=== PATIENT | female | born 1980 | race Caucasian/White ===

== ENCOUNTER → 2018-05-21 16:01 | Outpatient (CLI) | payer OTHER, SELFPAY ==
[2018-05-26 12:13] LABS: HPV Reflexed? NOT INDICATED
== END ==
PROVIDERS: Referring Provider Obstetrics & Gynecology; Visit Provider Obstetrics & Gynecology
DX: Z12.4 Encounter for screening for malignant neoplasm of cervix (principal)
CPT/HCPCS: 87624; 88175; G0145

== ENCOUNTER → 2019-06-14 | Outpatient (CLI) | payer OTHER, SELFPAY ==
[2019-06-14 15:03] VITALS: BMI 24.9
[2019-06-15 09:13] LABS: Amphetamine Urine VISTA NEGATIVE (<1000 ng/mL); Barbiturate Urine VISTA NEGATIVE (< 200 ng/mL); Benzodiazepine Urine VISTA NEGATIVE (< 200 ng/mL); Cocaine Urine VISTA NEGATIVE (< 300 ng/mL); Ecstacy Urine VISTA NEGATIVE (< 500 ng/mL); Methadone Urine VISTA NEGATIVE (< 300 ng/mL); PCP Urine VISTA NEGATIVE (< 25 ng/mL); THC Urine VISTA NEGATIVE (< 50 ng/mL); Vista UDS pH Range 6
[2019-06-15 11:58] LABS: Chlamydia Trachomatis by PCR Negative (Negative); Neisserai gonorrhoeae by PCR Negative (Negative); Probe Check PASS; Sample Adequacy Control PASS; Specimen Processing Control PASS
== END | disposition home or self-care (01) ==
LOC: LABSPEC 06-15 08:32
PROVIDERS: Visit Provider Obstetrics & Gynecology
DX: Z34.90 Encounter for supervision of normal pregnancy, unspecified, unspecified trimester (principal)
CPT/HCPCS: 80307; 87086; 87491; 87591

== ENCOUNTER → 2019-07-12 09:58 | Outpatient (CLI) | payer OTHER, SELFPAY ==
[2019-07-12 09:34] VITALS: BMI 24.9
[2019-07-12 10:25] LABS: Absolute Lymphocyte Count 1.34 X10^3/uL (0.83-4.51); Absolute Neutrophil Count 6.7 X10^3/uL (2.0-7.7); Basophil# 0.04 X10^3/uL; Basophil% 0.5 % (0-1); Eosinophil# 0.14 X10^3/uL; Eosinophils% 1.6 % (0-5); Hematocrit 30.4 % (37-47); Hemoglobin 10.4 g/dL (12.0-15.0); Lymphocyte # 1.34 X10^3/ul (4.0); Lymphocyte % 15.3 % (19-41); Mean Corp Hgb Conc 34.2 g/dL (32-36); Mean Corpuscular Volume 96.5 fL (81-99); Mean Platelet Vol. 9.3 fl (6.2-12.0); Monocyte# 0.53 X10^3/uL; NRBC Flagged by Analyzer 0 % (0-5); Neutrophil # 6.67 X10^3/uL (2.7-7.7); Platelet Count 194 K/mm3 (150-450); RBC Distribution Width CV 12.7 % (11.6-14.6); RBC Distribution Width SD 44.1 fl (35.1-43.9); Red Blood Count 3.15 M/mm3 (4.2-5.4); White Blood Count 8.8 K/mm3 (4.4-11.0)
[2019-07-12 11:22] LABS: HIV - WCH Non-Reactive (Nonreactive); Hepatitis B Surface Antigen Non-Reactive (Nonreactive); Hepatitis C Antibody Non-Reactive (Nonreactive); Rubella IgG 99.5 IU/mL
[2019-07-15 02:20] LABS: Rapid Plasmin Reagin (RPR) NONREACTIVE (NONREACTIVE)
== END ==
PROVIDERS: Referring Provider Obstetrics & Gynecology; Visit Provider Obstetrics & Gynecology
DX: Z34.90 Encounter for supervision of normal pregnancy, unspecified, unspecified trimester (principal)
CPT/HCPCS: 36415; 85025; 86592; 86703; 86762; 86803; 86850; 86900; 86901; 87340

== ENCOUNTER → 2019-08-19 12:21 | Outpatient (CLI) | payer OTHER, SELFPAY ==
[2019-07-12 09:34] VITALS: BMI 24.9
[2019-08-16 11:26] VITALS: BMI 24.9
--- NOTE | 2019-08-19 12:22 | US_ITS ---
STUDY: SECOND AND THIRD TRIMESTER OBSTETRICAL ULTRASOUND REASON FOR EXAM: Female, 39 years old anatomy LMP: 04/02/2019 TECHNIQUE: Transabdominal TECHNICAL QUALITY: Adequate. PRIOR ULTRASOUND: None. FINDINGS: There is a single intrauterine fetus. The fetus is in a breech presentation. There is demonstrated cardiac activity with a heart rate of 155 bpm. There is a normal amniotic fluid volume. The largest amniotic fluid pocket measures 5.3 cm. The placenta is anterior in location and is not low lying. There are Grade 0 placental changes. The cervix measures 3.4 in length. The bilateral adnexal regions are normal. BIOMETRY: BPD: 4.5: 19 weeks, 4 days HC: 17.1: 19 weeks, 4 days AC: 15.0: 20 weeks, 1 days FL: 3.1: 19 weeks, 3 days CI: FL/BPD: FL/HC: FL/AC: HC/AC: age by current US: 19 weeks, 5 days. GAVIN by current US: 01/08/2020. Estimated weight: 317 grams, +/- 47 grams, 53 %. age by prior US: weeks, days. GAVIN by prior US: . Age by LMP: 19 weeks, 5 days. GAVIN by LMP: 01/08/2020. ANATOMY: Gender: Male Cranium: Normal lateral ventricles. Normal choroid plexus. Normal cerebellum. Normal cisterna magna. Normal face, nose and lips. Chest: Normal 4-chamber heart. Abdomen/Pelvis: Normal diaphragm. Normal stomach. Normal abdominal wall. Normal cord insertion. Normal 3 vessel cord. Normal kidneys. Normal bladder. Spine: Normal cervical spine. Normal thoracic spine. Normal lumbar spine. Normal sacrum. Extremities: Normal bilateral upper extremities. Normal bilateral lower extremities. US/OB Anatomy Scan IMPRESSION: Single live fetus in a breech presentation. No demonstrated anatomic abnormality. Placenta is grade 0 and is not low-lying. Cervix is closed. age by current US: 19 weeks, 5 days. GAVIN by current US: 01/08/2020. Estimated weight: 317 grams, +/- 47 grams, 53 %. Electronically Signed: Jason Rae MD at 14:00 EDT , Service support ,
== END ==
PROVIDERS: Referring Provider Obstetrics & Gynecology; Visit Provider Obstetrics & Gynecology
DX: O09.90 Supervision of high risk pregnancy, unspecified, unspecified trimester (principal); Z3A.00 Weeks of gestation of pregnancy not specified
CPT/HCPCS: 76805

== ENCOUNTER → 2019-08-26 14:32 | Outpatient (CLI) | payer OTHER, SELFPAY ==
[2019-08-16 11:26] VITALS: BMI 24.9
[2019-08-26 14:48] LABS: Absolute Lymphocyte Count 1.48 X10^3/uL (0.83-4.51); Basophil# 0.05 X10^3/uL; Basophil% 0.5 % (0-1); Eosinophil# 0.12 X10^3/uL; Eosinophils% 1.2 % (0-5); Hematocrit 32.1 % (37-47); Hemoglobin 10.9 g/dL (12.0-15.0); Lymphocyte # 1.48 X10^3/ul (4.0); Lymphocyte % 14.3 % (19-41); Mean Platelet Vol. 9.1 fl (6.2-12.0); Monocyte# 0.64 X10^3/uL; Monocyte% 6.2 % (0-10); NRBC Flagged by Analyzer 0 % (0-5); Neutrophil # 8.01 X10^3/uL (2.7-7.7); Neutrophil % 77.3 % (47-70); Platelet Count 232 K/mm3 (150-450); RBC Distribution Width SD 47.2 fl (35.1-43.9); Red Blood Count 3.21 M/mm3 (4.2-5.4); White Blood Count 10.4 K/mm3 (4.4-11.0)
== END ==
PROVIDERS: Referring Provider Nurse Practitioner Women's Health; Visit Provider Nurse Practitioner Women's Health
DX: O99.019 Anemia complicating pregnancy, unspecified trimester (principal); D64.9 Anemia, unspecified; Z3A.00 Weeks of gestation of pregnancy not specified
CPT/HCPCS: 36415; 85025

== ENCOUNTER → 2019-12-17 14:23 | Outpatient (CLI) | payer OTHER, SELFPAY ==
[2019-12-03 16:07] VITALS: BMI 27.4
--- NOTE | 2019-12-17 14:23 | US_ITS ---
STUDY: SECOND AND THIRD TRIMESTER OBSTETRICAL ULTRASOUND - LIMITED REASON FOR EXAM: Female, 39 years old. Growth.. LMP: 04/02/2019. PRIOR ULTRASOUND: 08/19/2019. TECHNIQUE: 1 TECHNICAL QUALITY: Adequate. FINDINGS: There is a single intrauterine fetus. The fetus is in a cephalic presentation. There is demonstrated cardiac activity with a heart rate of 153 bpm. There is a normal amniotic fluid volume. The largest amniotic fluid pocket measures 4.26 cm. The amniotic fluid index (JIM) is 10.01 cm. The placenta is anterior in location and is not low lying. There are Grade 1 placental changes. There is a succenturiate anterior placenta. The cervix is obscured. BIOMETRY: BPD: 8.55 cm: 34 weeks, 3 days HC: 32.22 cm: 36 weeks, 2 days AC: 33.74 cm: 37 weeks, 4 days FL: 6.98 cm: 35 weeks, 5 days Age by LMP: 36 weeks, 6 days. GAVIN by LMP: 01/08/2020.. age by prior US: 36 weeks, 6 days. GAVIN by prior US: 01/08/2020.. age by current US: 36 weeks, 1 days. GAVIN by current US: 01/13/2020.. Estimated weight: 3005 grams, +/- 445 grams, 51 percentile. Gender: Indeterminant US/OB Limited With Biometrics IMPRESSION: 1. Live single intrauterine of 36 weeks, 1 day. GAVIN is 01/13/2020. There is adequate interval growth since the prior ultrasound. 2. EFW 3005 g. 3. JIM of 10.01 cm. 4. Anterior grade 1 placenta. There is a succenturiate anterior placenta noted. 5. Vertex presentation. Electronically Signed: Isidro Hoyos DO at 22:39 EDT Tel [phone], Service support ,
== END ==
PROVIDERS: PCP Nurse Practitioner Family; Referring Provider Obstetrics & Gynecology; Visit Provider Obstetrics & Gynecology
DX: O09.93 Supervision of high risk pregnancy, unspecified, third trimester (principal); Z3A.36 36 weeks gestation of pregnancy
CPT/HCPCS: 76816; 87077; 87081; 87186

== ENCOUNTER 2019-12-29 21:40 | Inpatient (IN) | payer OTHER, SELFPAY ==
[2019-12-24 15:48] VITALS: BMI 30.3
[2019-12-29 21:34] VITALS: BP 126/76; PULSE 77; PULSE 80; TEMP 36.8; O2SAT 99
[2019-12-29 22:01] VITALS: BMI 31.0
[2019-12-29] MEDS: Lactated Ringers 1,000 ML 50 ML IV (22:10)
[2019-12-29 22:30] VITALS: BP 135/73; PULSE 76; TEMP 37
[2019-12-29 22:38] LABS: Absolute Neutrophil Count 11.2 X10^3/uL (2.0-7.7); Basophil# 0.06 X10^3/uL; Basophil% 0.4 % (0-1); Eosinophil# 0.13 X10^3/uL; Eosinophils% 0.9 % (0-5); Hematocrit 33.7 % (37-47); Hemoglobin 11.9 g/dL (12.0-15.0); Mean Corp Hgb Conc 35.3 g/dL (32-36); Mean Corpuscular Hgb 34.3 pg (27.0-32.0); Mean Corpuscular Volume 97.1 fL (81-99); Mean Platelet Vol. 10.5 fl (6.2-12.0); Monocyte# 0.83 X10^3/uL; Monocyte% 5.8 % (0-10); NRBC Flagged by Analyzer 0 % (0-5); Neutrophil # 11.19 X10^3/uL (2.7-7.7); Neutrophil % 78.3 % (47-70); Platelet Count 229 K/mm3 (150-450); RBC Distribution Width SD 42.9 fl (35.1-43.9); Red Blood Count 3.47 M/mm3 (4.2-5.4); White Blood Count 14.3 K/mm3 (4.4-11.0)
[2019-12-29 22:51] LABS: Bedside Glucose 101 mg/dL (70-110)
[2019-12-30] VITALS (24 sets, daily range): BP systolic 105–139; BP diastolic 57–80; PULSE 75–225; RESP 16–18; TEMP 36.3–37.2; O2SAT 81–100
[2019-12-30] MEDS: 0.9% Saline Lock 10 ML Syringe IV ×3 (00:20→06:59)
--- NOTE | 2019-12-30 01:21 | HP.PCM_ITS ---
- Problem List (1) Active labor at term Status: Acute (2) Positive GBS test Status: Acute Comment: plan PCN in labor (3) 36 weeks gestation of Status: Acute Comment: covid testing ordered 12/15/19 (scheduled 12/31/2019 4:30) (4) Blood test declined Status: Acute Comment: Missed blood draw for 1h GTT. Initially planned for home glucose monitoring, but patient refuses. Counseled on importance of assessing for gestational diabetes and that elevated BGTs can result in problems with development and excessive growth. (5) Palpitations Status: Acute Comment: cardiology consult/Ramandeep/normal (6) Rh negative status during Status: Acute Qualifiers: Comment: Refused rhogam at 28 weeks. Counseled on risks associated with alloimmunization and rationale for rhogam. Voices understanding of potential risks. Would be agreeable to rhogam at delivery if needed. Patient's Shayan is A+. (7) Advanced maternal age (AMA) in Status: Acute Comment: genetic counseling provided. NL 36 wk growth US (8) Status: Acute Qualifiers: Comment: carrier, genetic, and ntd screening declined. anatomy us normal (9) Supervision of high risk , antepartum Status: Acute Comment: PRR GAVIN 01/08/20 boy secret Shayan History Date of Admission: 12/30/19 Final GAVIN: 01/08/20 Final GAVIN Source: LMP Gestational age: 38 Weeks and 5 Days History of this : This is a 39 year-old, G1, P0, at 38 weeks gestational age admitted in active labor. Denies leakage of fluid, vaginal bleeding, decreased movement. Medical History: Medical History (Last Reviewed 12/24/19 @ 15:49 by Ina Mckoy) Palpitations (Acute) R00.2 cardiology consult/Ramandeep/normal Rh negative status during (Acute) O26.899, Z67.91 Refused rhogam at 28 weeks. Counseled on risks associated with alloimmunization and rationale for rhogam. Voices understanding of potential risks. Would be agreeable to rhogam at delivery if needed. Patient's Shayan is A+. Advanced maternal age (AMA) in (Acute) genetic counseling provided. NL 36 wk growth US (Acute) Z34.90 carrier, genetic, and ntd screening declined. anatomy us normal Supervision of high risk , antepartum (Acute) O09.90 PRR GAVIN 01/08/20 boy secret Shayan Anemia affecting (Resolved) O99.019 start iron; rpt CBC 08/15 Surgical History: Surgical History (Last Reviewed 12/24/19 @ 15:49 by Ina Mckoy) S/P cholecystectomy Z90.49 S/P ear surgery Z98.890 Allergies No Known Allergies Allergy (Verified 12/29/19 22:59) Home Medications: Home Medications digestive enzymes 1 cap PO DAILY 06/14/19 lactobacillus combination no.8 3 billion cell capsule 3,000 mmu cells PO DAILY 06/14/19 vitamin #56-iron 35 mg and 5 mg-folic acid 1 mg-dha capsule 1 cap PO DAILY 06/14/19 ferrous sulfate 250 mg (50 mg iron) tablet,extended release 250 mg PO DAILY 09/08/19 Smoking Status: Never smoker Alcohol: None NST - FHR Rate Baby A Baseline: 150 Variability:: Moderate Accelerations:: 15 x 15 Decelerations:: None NST Reactive:: Yes FHR Category:: Category I Uterine Activity:: q5 min History Past Pregnancies: Pregancy History 1 Elective abortions Hx Para Spontaneous abortions Hx # Term Pregnancies Ectopic pregnancies Hx # Pregnancies Multiple births # of living children Labs: Mom's Microbiology 12/29/19 22:00 Mucosa - Nose - Final Mom's Labs & Results 12/29/19 12/29/19 12/29/19 22:00 22:00 22:29 WBC 14.3 H RBC 3.47 L Hgb 11.9 L Hct 33.7 L MCV 97.1 MCH 34.3 H MCHC 35.3 RDW Std Deviation 42.9 RDW Coeff of Yudith 12.0 Plt Count 229 MPV 10.5 Immature Gran % (Auto) 0.600 Neut % (Auto) 78.3 H Lymph % (Auto) 14.0 L [place] % (Auto) 5.8 Eos % (Auto) 0.9 Baso % (Auto) 0.4 Absolute Neuts (auto) 11.2 H Absolute Lymphs (auto) 2.00 Nucleated RBC % 0 POC Glucose 101 Blood Type O NEGATIVE Antibody Screen NEGATIVE Course Did the patient receive Yes care? Labs Blood Type: O RH: NEGATIVE RPR/VDRL/Syphilis Nonreactive Rubella status Immune HbSAg Negative Date Done: 07/12/19 Chlamydia Negative Gonorrhea Negative HIV/AIDS Non-Reactive Group B Strep: Positive Current Obstetrical History Gestational Diabetes No Incompetent Cervix No Infertility Yes: no treatments IUGR No Macrosomia No Hypertension/Pre-eclampsia No Placenta Previa/Abruption No PTL/PROM No Uterine anomaly No Oligohydramnios No Polyhydramnios No Multiple gestation No Past Medical History Asthma No Diabetes No Hypertension No Heart disease No Mitral valve prolapse No Neurologic/Seizure disorder/ No Migraines Kidney disease No Liver disease No Varicosities No Clotting disorders/Hx of DVT No Thyroid Dysfunction No Other medical diseases No Psychiatric disorders No Major trauma No Abnormal PAP smear No Sleep apnea No Mammogram in the last 2 years No Social History Marital Status: Alleged father Shayan Hx Smoking No Smoking Status Never smoker Expected Delivery Method: Spontaneous Vaginal Describe any other labor & delivery plans:: Pregancy History. 1 Elective abortions. Hx Para Spontaneous abortions. Hx # Term Pregnancies Ectopic pregnancies. Hx # Pregnancies Multiple births. # of living children. OB Visit. GAVIN Calculator. Estimated Delivery DateMethodCurrent WG. Current Iznmalec59/14/20LMP (Certain)37w 6d. Other Oskbtwgaa40/14/20Ultrasound #137w 6d. Expected Delivery Route/Plan. . Labor Preferences-. labor support person: Shayan. pain management options preferred: desires natural with minimal intervention, but open to epidural. Desired hydrotherapy in labor. Hep lock if able. Labor preferences: declines baby meds, desires immediate skin to skin, pitocin and AROM only if medically necessary, pitocin only if needed. cut cord/dad catch: both. : yes. PP control planned: unsure. discussed possible routes of delivery and associated risks: discussed possible delivery modalities and possible indications for each including R/B/A of , VAVD, and CS. questions answered. special requests: no baby meds, immediate skin to skin. Specific Issue/Plans. flu vaccine: declined. tdap vaccine: declined. rhogam: refused in - agreeable if needed PP. LARC form signed: 11/18. Problem list reviewed and updated with the most current plan of care details and appropriate orders placed. Relevant counseling for the gestational age provided. Continue routine care and follow up unless otherwise noted in visit notes/problem list details. Initial Weight: 155 lb. Date. -?-?-?-?-?-?-?-?-?-?-?-?-. EGAWeightBPUrine Prot. -?-?-?-?-?-?-?-?-?-?-?-?-. GlucoseFHRFuHtPresDilation. -?-?-?-?-?-?-?-?-?-?-?-?-. EffacedFetal StVisit Note. 07/12/19. -?-?-?-?-?-?-?-?-?-?-?-?-. 14w 2d158 lb. (+3 lb)114/60Negative. -?-?-?-?-?-?-?-?-?-?-?-?-. Negative 165. -?-?-?-?-?-?-?-?-?-?-?-?-. SM- vb lof crmaping doing well. nob labs today. 08/16/19. -?-?-?-?-?-?-?-?-?-?-?-?-. 19w 2d170 lb. (+15 lb)126/80Negative. -?-?-?-?-?-?-?-?-?-?-?-?-. Negative 162. -?-?-?-?-?-?-?-?-?-?-?-?-. MH-No Vb, LOF. -No Vb, LOF. c/o palpitations mostly in evenings, improved with Fe supp but now recurring. No dizziness. Will recheck CBC and get cardiology consult. Anatomy US later this week. 09/17/19. -?-?-?-?-?-?-?-?-?-?-?-?-. 23w 6d170 lb 6 oz. (+15 lb 6 oz)112/60Negative. -?-?-?-?-?-?-?-?-?-?-?-?-. Negative 22873. -?-?-?-?-?-?-?-?-?-?-?-?-. SM- no vb lof good fm n oregular ctx. 10/15/19. -?-?-?-?-?-?-?-?-?-?-?-?-. 27w 6d174 lb. (+19 lb)106/60Negative. -?-?-?-?-?-? -?-?-?-?-?-?-. Negative 73050. -?-?-?-?-?-?-?-?-?-?-?-?-. GP - no LOF, VB, DFM, ctx. Refused rhogam. Late for blood draw for GTT - plan 7d home glucose monitoring. 11/05/19. -?-?-?-?-?-?-?-?-?-?-?-?-. 30w 6d178 lb. (+23 lb)104/60Negative. -?-?-?-?-?-?-?-?-?-?-?-?-. Negative [id number]. -?-?-?-?-?-?-?-?-?-?-?-?-. SM- no vb lof good fm no regular ctx. 11/19/19. -?-?-?-?-?-?-?-?-?-?-?-?-. 32w 6d180 lb 8 oz. (+25 lb 8 oz)124/76Negative. -?-?-?-?-?-?-?-?-?-?-?-?-. Negative 87017. -?-?-?-?-?-?-?-?-?-?-?-?-. GP - no LOF, VB, DFM, ctx. Did not do home glucose monitoring - refuses. Discussed reason recommended and voices understanding. LARC form signed - declines. 12/03/19. -?-?-?-?-?-?-?-?-?-?-?-?-. 34w 6d185 lb. (+30 lb)114/60Negative. -?-?-?-?-?-?-?-?-?-?-?-?-. Negative 76609. -?-?-?-?-?-?-?-?-?-?-?-?-. SM- no vb lof good fm no regular ctx. ordered growth US. 12/17/19. -?-?-?-?-?-?-?-?-?-?-?-?-. 36w 6d190 lb 4 oz. (+35 lb 4 oz)120/78Negative. -?-?-?-?-?-?-?-?-?-?-?-?-. Negative [id number]. -?-?-?-?-?-?-?-?-?-?-?-?-. GP - no LOF, VB, DFM, ctx. GBS today. Discussed labor preferences. Declines SVE. 12/24/19. -?-?-?-?-?-?-?-?-?-?-?-?-. 37w 6d188 lb. (+33 lb)126/82Negative. -?-?-?-?-?-?-?-?-?-?-?-?-. Negative [id number]. -?-?-?-?-?-?-?-?-?-?-?-?-. 70-1SM- no vb lof good fm no regular ctx Review of Systems Constitutional: Denies: Chills, Fever HEENT: Denies: Head Aches, Visual Changes Cardiovascular: Denies: Chest Pain, Chest Pressure, Chest Tightness, Light Headedness Respiratory: Denies: Cough, Shortness of Breath Gastrointestinal: Denies: Abdominal Pain, Constipation, Nausea, Vomiting Genitourinary: Denies: Dysuria Gynecological: Denies: Vaginal bleeding, Vaginal discharge, Vaginal itching Neurological: Denies: Blurred vision, Confusion, Headaches Psychiatric: Denies: Anxiety, Depression Physical Exam Vitals: Vital Signs Temp Pulse BP Pulse Ox 98.5 F 75 125/80 H 98 12/30/19 01:07 12/30/19 01:07 12/30/19 01:07 12/30/19 01:07 General: Alert, Oriented x3, Cooperative, No apparent distress, Well developed, Well nourished HEENT: Atraumatic, PERRLA, EOMI, Normocephalic Cardiovascular: Regular rate Lungs: Normal air movement Abdomen: Soft, Non Tender, Non-Distended, Gravid, Appropriate for Gestational Age Extremities:: No edema Neurological: Cranial nerves II-XII grossly intact, Neuro grossly intact DOWNSTAIRS MAID: Normal external genitalia Estimated gestational size: Appropriate for gestational size Presentation: Cephalic Cervix Dilation (cm): 5 Station: -2 Effacement (%): 70 Assessment/Plan All Active Problems (Last Reviewed 12/24/19 @ 15:49 by Ina Mckoy) Active labor at term (Acute) Positive GBS test (Acute) 36 weeks gestation of (Acute) Blood test declined (Acute) Palpitations (Acute) Rh negative status during (Acute) Advanced maternal age (AMA) in (Acute) (Acute) Supervision of high risk , antepartum (Acute) Anemia affecting (Resolved) This is a 39 year-old, G 1, P 0, at 38 weeks gestational age. Patient presents IAL, plan expectant management for , pitocin/AROM PRN if needed. Pain management: Plans natural with minimal intervention GBS positive plan IV PCN. Rh negative - declined rhogam in Declined gestational diabetes screening - BGT nl on admit Management of any complications: None I have reviewed the [facility] and made any clinically relevant updates.
[2019-12-30] MEDS: Oxytocin 30 units/NS 500 ml 30 UNITS/500 ML IV.SOLN 334 UNITS IV (04:45)
--- NOTE | 2019-12-30 05:02 | PLAC_PTH ---
PATIENT: VALERIANO DE LA CRUZ LOC: WP U#:[id number] AGE/SX: 39/F ROOM: WP016 RE12/29/[address]: Dr. Christina Banks MD : 1980 BED: 1 DIS: 12/31/2019 SPEC #: [id number] RECD: 12/30/19 05:18 STATUS: LENI REHoward #: [id number] RUPAL: 12/30/19 05:[address]: Christina Banks DEPT: SURGICAL PATHOLOGY RECD BY: Peg Reynoso ENTERED: 12/30/19 07:41 SP TYPE: PLACENTA OTHR DR: Paz Shankar, DISABILITY PROGRAM NAVIGATOR-Migdalia Tissues: Placenta, NOS Procedures: Surgery Specimen Level V HEADER OPERATION: Vaginal delivery PRE-OP DIAGNOSIS: Placental abruption TISSUE SUBMITTED: Placenta MICROSCOPIC DIAGNOSIS Placenta: Placental disc - third trimester placenta (561 gm). Membranes - mild acute chorioamnionitis. Umbilical cord - three blood vessels and no pathologic diagnosis. See comment. SJ:laura 01/03/20 COMMENT Multiple fragments of blood clots are noted at the edge of the placental disc compatible with clinical impression of placental abruption. MICROSCOPIC DESCRIPTION Slides are reviewed. GROSS DESCRIPTION SPECIMEN: PLACENTA / CLINICAL INFORMATION: A. Weight: 3.355 kg B. Gestational Age: 38 weeks C. Sex: Male PLACENTAL WEIGHT (POST FIXATION): 561 gm PLACENTAL DIMENSIONS: 17 x 17 x 3 cm PLACENTAL SHAPE: Usual ovoid PLACENTAL WEIGHT FOR GESTATIONAL AGE: Within 10-99th percentile MEMBRANES - Present A. Insertion: Marginal B. Site of rupture from edge: 4 cm from edge of placental disc C. Color of membrane: Woodward-galarza D. Abnormalities: None UMBILICAL CORD - Present A. Color: Woodward-galarza B. Insertion: Central C. Length: 31 cm D. Diameter: 1 cm E. Number of vessels: Three F. Abnormalities: None PLACENTAL DISC - Present A. Color of surface: Woodward-galarza B. surface abnormalities: None C. Maternal cotyledons: Intact with minimal tears D. Attached retro placental clot: No clot E. Cut surface: Dark red and spongy F. Lesions: None G. Separate clot: Multiple fragments of blood clot are noted at placental disc weighing in aggregate 34 gm and measuring 10 x 9 x 3 cm. SECTIONS SUBMITTED: 1. Membrane roll 2. Cord, maternal end 3. Cord, end 4. Placental disc, and maternal surfaces 5. Placental disc, and maternal surfaces 6. Placental disc, and maternal surfaces SJ:laura 12/31/19 TC:2 CPT: 77577
--- NOTE | 2019-12-30 05:04 | OP.PCM_ITS ---
Problem List (1) Active labor at term Status: Acute (2) Positive GBS test Status: Acute Comment: plan PCN in labor (3) 36 weeks gestation of Status: Acute Comment: covid testing ordered 12/15/19c (scheduled 12/31/2019 4:30) (4) Blood test declined Status: Acute Comment: Missed blood draw for 1h GTT. Initially planned for home glucose monitoring, but patient refuses. Counseled on importance of assessing for gestational diabetes and that elevated BGTs can result in problems with development and excessive growth. (5) Palpitations Status: Acute Comment: cardiology consult/Ramandeep/normal (6) Rh negative status during Status: Acute Qualifiers: Comment: Refused rhogam at 28 weeks. Counseled on risks associated with alloimmunization and rationale for rhogam. Voices understanding of potential risks. Would be agreeable to rhogam at delivery if needed. Patient's Shayan is A+. (7) Advanced maternal age (AMA) in Status: Acute Comment: genetic counseling provided. NL 36 wk growth US (8) Status: Acute Qualifiers: Comment: carrier, genetic, and ntd screening declined. anatomy us normal (9) Supervision of high risk , antepartum Status: Acute Comment: PRR GAVIN 01/08/20 boy secret Shayan Vaginal Delivery Maternal Presentation: Active Labor 39-year-old at 38 weeks gestation admitted in active labor. Patient was augmented with artificial sure of membranes. Patient made rapid cervical change to complete dilation. Amniotic Membrane Rupture Type: Artificial Rupture of Membrane time: 0100 Amniotic Fluid Description: Clear Final GAVIN: 01/08/20 Gestational age: 38 Weeks and 5 Days Date of Procedure: 12/30/19 Pre-Operative Diagnosis: Active labor Post-Operative Diagnosis: same Surgery/ Procedure Performed: Spontaneous Vaginal Delivery Type of Anesthesia: Local with 1% lidocaine Description of Procedure: Patient began pushing and delivered the head in the BETTE presentation. The head was delivered atraumatically and no nuchal cord was noted. The anterior and posterior shoulders delivered without complication followed by the rest of the and the was placed on the maternal abdomen. Delayed cord clamping was employed for approximately 60 seconds. Cord was clamped and cut and gentle traction was applied to the cord and the placenta delivered spontaneously immediately following it was noted to be intact with three-vessel cord. The perineum and vagina were inspected and a midline second-degree laceration and a right periurethral laceration were noted and repaired in the standard fashion using 3-0 Vicryl Rapide. A total of 30 cc of 1% lidocaine were instilled in these areas prior to the repair. EBL was 250 cc. Patient and tolerated delivery well. Presentation: BETTE Placental Delivery Description: Spontaneous Placenta Disposition: Sent to Pathology Percentage of Placenta Abruption: 25 Cord Vessel Description: 3 Vessels Cord Entanglement: None Estimated Blood Loss: 250 A gender: Male (1 minute): 7 (5 minute): 9 Episiotomy Description: None Laceration: Midline, Perineal Extension/lac, 2nd degree Medications given after delivery: IV Pitocin Complications: None Multi Select Codes - Urinary/Genital Urinary/Genital CPT Codes: 67827 Vaginal Delivery [facility]
[2019-12-30] MEDS: Dibucaine 30 GM Tube 1 APPLIC TOPICAL (23:41)
[2019-12-31 04:52] VITALS: BP 106/65; PULSE 77; PULSE 79; RESP 16; TEMP 36.6; O2SAT 99
--- NOTE | 2019-12-31 07:24 | PCM.PN.OB ---
Patient Problems: Active and Suspected Problems (Last Reviewed 12/24/19 @ 15:49 by Ina Mckoy) Active labor at term (Acute) Positive GBS test (Acute) plan PCN in labor 36 weeks gestation of (Acute) covid testing ordered 12/15/19c (scheduled 12/31/2019 4:30) Blood test declined (Acute) Missed blood draw for 1h GTT. Initially planned for home glucose monitoring, but patient refuses. Counseled on importance of assessing for gestational diabetes and that elevated BGTs can result in problems with development and excessive growth. Palpitations (Acute) cardiology consult/Ramandeep/normal Rh negative status during (Acute) Refused rhogam at 28 weeks. Counseled on risks associated with alloimmunization and rationale for rhogam. Voices understanding of potential risks. Would be agreeable to rhogam at delivery if needed. Patient's Shayan is A+. Advanced maternal age (AMA) in (Acute) genetic counseling provided. NL 36 wk growth US (Acute) carrier, genetic, and ntd screening declined. anatomy us normal Supervision of high risk , antepartum (Acute) PRR GAVIN 01/08/20 boy secret Shayan Subjective: Patient doing well without complaints. Tolerating PO. Ambulating and voiding without difficulty. Breast feeding well. Denies chest pain, shortness of breath, calf pain/swelling, fevers, chills, lightheadedness. - Physical Exam Vitals/I&O's: Vital Signs Temp Pulse Resp BP Pulse Ox 97.8 F 77 16 106/65 99 12/31/19 04:52 12/31/19 04:52 12/31/19 04:52 12/31/19 04:52 12/31/19 04:52 Oxygen Delivery Method Room Air Weight: 192 lb 3.889 oz Body Mass Index (BMI) 31.0 Intake and Output for Last 24 Hours 12/29/19 12/30/19 12/31/19 23:59 23:59 23:59 Intake Total 2391.47 / 2391.47 Output Total 800 / 800 Balance 1591.47 / 1591.47 General: Alert, Oriented x3, Cooperative, No apparent distress HEENT: Atraumatic, PERRLA, EOMI, Normocephalic Neck: Supple, No JVD Lungs: Normal air movement Cardiovascular: Regular rate Abdomen: Soft, Non Tender, Non-Distended Extremities: No edema Neurological: Cranial nerves II-XII grossly intact, Neuro grossly intact Psych/Mental Status: Normal Affect, Appropriate Microbiology Past 72 Hours 12/29/19 22:00 Mucosa - Nose - Final Current Medications Acetaminophen (Acetaminophen 500 Mg Tablet) 1,000 mg PO Q8H PRN PRN PRN Reason: Pain Score 1-3 Bisacodyl (Bisacodyl 10 Mg Suppository) 10 mg RECTAL UD PRN PRN Reason: If no BM Dibucaine (Dibucaine 30 Gm Tube) 1 applic TOPICAL TID PRN PRN; Protocol PRN Reason: Discomfort Last Admin: 12/30/19 23:41 Dose: 1 applicatio Documented by: Hydrocortisone (Hydrocortisone 2.5% Crm) 1 applic TOPICAL TID PRN PRN; Protocol PRN Reason: Discomfort Ibuprofen (Ibuprofen 600 Mg Tablet) 600 mg PO Q6H PRN PRN PRN Reason: Pain Score 1-3 Methylergonovine Maleate (Methylergonovine 0.2 Mg/Ml Ampul) 0.2 mg IM X1 PRN PRN Reason: Excess bleeding/uterine atony Ondansetron HCl (Ondansetron 4 Mg/2 Ml Vial) 4 mg IV Q4H PRN PRN PRN Reason: Nausea Oxycodone HCl (Oxycodone 5 Mg Tablet) 5 - 10 mg PO Q4H PRN PRN PRN Reason: Pain Score 4-10 Senna/Docusate Sodium (Senna/Docusate Sodium 1 Tablet) 1 - 2 tablet PO DAILY PRN PRN PRN Reason: Constipation Simethicone (Simethicone 80 Mg Tablet) 80 mg PO PCHS PRN PRN Reason: Indigestion/Stomach pain Sodium Chloride (0.9% Saline Lock 10 Ml Syringe) 5 - 15 ml IV UD PRN PRN Reason: SALINE FLUSH Last Admin: 12/30/19 06:59 Dose: 10 ml Documented by: Medical Necessity - Tobacco Use Smoking Status: Never smoker Assessment/Plan All Active Problems (Last Reviewed 12/24/19 @ 15:49 by Ina Mckoy) Active labor at term (Acute) Positive GBS test (Acute) 36 weeks gestation of (Acute) Blood test declined (Acute) Palpitations (Acute) Rh negative status during (Acute) Advanced maternal age (AMA) in (Acute) (Acute) Supervision of high risk , antepartum (Acute) Anemia affecting (Resolved) s/p PPD # 1 1. routine post delivery care 2. breast feeding- support given 3. rh negative - rhogam given 4. rubella immune
--- NOTE | 2019-12-31 07:26 | DCINST_ITS ---
Discharge Diet: No Restrictions Discharge Activity: Return to Normal Activity, May not drive while taking narcotic pain medications., May Shower May resume sexual activity in: 4-6 weeks Additional Activity Instructions:: Nothing in the vagina for 4-6 weeks. You may return to work/school in 6 weeks. Call your doctor if your incision/area has: Continuous Slow Oozing, Sudden Increased Bleeding, Increased Pain/ Swelling, Increased Redness, Foul Smelling Discharge Additional Instructions: If you experience any of the following, contact your healthcare provider. * Bleeding that soaks a pad every hour for 2 hours * Fever 100.4 or higher * Unrelieved incision or abdominal pain * Swelling, redness, discharge or bleeding from your incision or episiotomy site * Your incision begins to separate * Problems urinating (including inability to urinate or burning while urinating). * Visual changes * Severe headache * Flu-like symptoms * Pain or redness in one of both of your breasts * Pain, warmth, tenderness or swelling in your legs, especially the calf area * Frequent nausea and vomiting * Symptoms of depression or anxiety If you experience any of the following, call 911 or go to the nearest Emergency Room. * Chest pain * Problems breathing * Seizure activity * Partial or complete paralysis of a body part, slurred speech, weakness or drooping of the face, or a sudden inability to walk or hold your balance Allergies/Adverse Reactions: Allergies No Known Allergies Allergy (Verified 12/29/19 22:59) Medications to take at Discharge digestive enzymes 1 cap PO DAILY 06/14/19 lactobacillus combination no.8 3 billion cell capsule 3,000 mmu cells PO DAILY 06/14/19 vitamin #56-iron 35 mg and 5 mg-folic acid 1 mg-dha capsule 1 cap PO DAILY 06/14/19 ferrous sulfate 250 mg (50 mg iron) tablet,extended release 250 mg PO DAILY 09/08/19 When: Call to make an appointment with your doctor in 6 weeks. If you had elevated Blood Pressure or 4th degree laceration you will need to be seen in 2 weeks. Primary Care Physician: Paz Shankar [facility], [facility] [Primary Care Provider] - Test Results: Test results from this visit will be discussed in further detail at your follow- up appointment, if applicable.
[2019-12-31 08:20] VITALS: BP 113/65; PULSE 86; PULSE 91; RESP 18; TEMP 37.6; O2SAT 99
[2019-12-31] MEDS: Acetaminophen 500 MG Tablet 1000 MG PO (08:28)
[2019-12-31 13:33] VITALS: BP 117/58; PULSE 85; RESP 18; TEMP 36.9; O2SAT 100
[2019-12-31 13:34] VITALS: BP 117/58; PULSE 90
[2020-01-04 11:33] LABS: Pathology Specimen OB SEE PATHOLOGY REPORT
== END 2019-12-31 13:55 | disposition home or self-care (01) | DRG 806 ==
LOC: WPOUT 21:46 → WP 21:47
PROVIDERS: Admitting Provider Obstetrics & Gynecology; PCP Nurse Practitioner Family; Visit Provider Obstetrics & Gynecology
DX: O99.02 Anemia complicating childbirth (principal); O36.0130 Maternal care for anti-D [Rh] antibodies, third trimester, not applicable or unspecified; O26.893 Other specified pregnancy related conditions, third trimester; R00.2 Palpitations; D64.9 Anemia, unspecified; O70.1 Second degree perineal laceration during delivery; O71.82 Other specified trauma to perineum and vulva; O99.824 Streptococcus B carrier state complicating childbirth; Z3A.38 38 weeks gestation of pregnancy; Z37.0 Single live birth
CPT/HCPCS: 59025; 59050; 82962; 85025; 85461; 86850; 86900; 86901; 87426; 88307; 90384; 99218; J7120; A4216; G0378; J2790

== ENCOUNTER → 2021-08-10 | Outpatient (CLI) | payer OTHER, SELFPAY ==
[2021-08-16 13:35] LABS: HPV APTIMA, High Risk Negative (Negative)
== END | disposition home or self-care (01) ==
LOC: LABSPEC 16:28
PROVIDERS: PCP Nurse Practitioner Family; Visit Provider Obstetrics & Gynecology
DX: Z12.4 Encounter for screening for malignant neoplasm of cervix (principal)
CPT/HCPCS: 87624; 88175; G0145

== ENCOUNTER → 2022-08-12 | Outpatient (CLI) | payer OTHER, SELFPAY ==
[2022-08-12 10:28] LABS: Basophil# 0.07 X10^3/uL; Basophil% 1.5 % (0-1); Eosinophil# 0.24 X10^3/uL; Eosinophils% 5.2 % (0-5); Hematocrit 37.8 % (37-47); Hemoglobin 13.1 g/dL (12.0-15.0); Lymphocyte % 17.3 % (19-41); Mean Corp Hgb Conc 34.7 g/dL (32-36); Mean Corpuscular Hgb 31.9 pg (27.0-32.0); Mean Platelet Vol. 9.4 fl (6.2-12.0); Monocyte% 10.8 % (0-10); NRBC Flagged by Analyzer 0 % (0-5); Neutrophil # 3.01 X10^3/uL (2.7-7.7); Platelet Count 177 K/mm3 (150-450); RBC Distribution Width CV 12.5 % (11.6-14.6); RBC Distribution Width SD 41.5 fl (35.1-43.9); Red Blood Count 4.11 M/mm3 (4.2-5.4); White Blood Count 4.6 K/mm3 (4.4-11.0)
[2022-08-12 10:57] LABS: Vitamin D,25 Hydroxy 33.7 ng/mL
[2022-08-12 11:06] LABS: Thyroid Stim Hormone (TSH) 1.08 uIU/mL (0.358-3.74)
== END | disposition home or self-care (01) ==
LOC: PAVLAB 09:40
PROVIDERS: PCP Nurse Practitioner Family; Referring Provider Nurse Practitioner Women's Health; Visit Provider Nurse Practitioner Women's Health
DX: Z13.29 Encounter for screening for other suspected endocrine disorder (principal); R53.83 Other fatigue
CPT/HCPCS: 36415; 82306; 84443; 85025